=== PATIENT | female | born 1985 | race Caucasian/White ===

== ENCOUNTER 2018-04-05 23:29 | Emergency (ER) | payer MEDICAID ==
[2018-04-06] MEDS ORDERED: ACETAMINOPHEN 325 MG TABLET PO ONE (00:26)
--- NOTE | 2018-04-06 00:27 | ER Document Report ---
HPI - HPI Patient complains to provider of: Fall Onset: Other - 6 days ago Onset/Duration: Persistent Quality of pain: Sharp Pain Level: 5 Context: Recent states that she was walking on the sidewalk at [facility] 6 days ago and stepped on uneven pavement causing her to fall. Patient states she fell back and then to her side. Patient complains of neck, upper and lower back pain with bilateral knee pain. Patient states she was not certain of exactly what happened and states there may have been a brief loss of consciousness. Patient without any nausea or vomiting. Patient states she was unable to come be evaluated sooner because she is a single mom. Associated Symptoms: Other - Neck, back, bilateral knee pain. denies: Headache Exacerbated by: Movement Relieved by: Denies Similar symptoms previously: No Recently seen / treated by doctor: No - ROS ROS below otherwise negative: Yes Systems Reviewed and Negative: Yes All other systems reviewed and negative - CONSTITUTIONAL Constitutional: DENIES: Fever - NEURO Neurology: DENIES: Headache - GASTROINTESTINAL Gastrointestinal: DENIES: Nausea, Patient vomiting - REPRODUCTIVE LMP: 03-20-18 Reproductive: DENIES: : - MUSCULOSKELETAL Musculoskeletal: REPORTS: Extremity pain - Lateral knee, Back Pain, Neck Pain - DERM Skin Color: Normal Skin Problems: None Past Medical History - General Information source: Patient - Social History Smoking Status: Current Every Day Smoker Smoking Education Provided: Yes Frequency of alcohol use: None Drug Abuse: None Occupation: [employer] Lives with: Family Family History: Reviewed & Not Pertinent - Medical History Medical History: Other - Celiac Musculoskeltal Medical History: Reports Hx Arthritis - Chronic back pain Psychiatric Medical History: Reports: Hx Anxiety Surgical Hx: Negative Vertical Provider Document - CONSTITUTIONAL Agree With Documented VS: Yes Exam Limitations: No Limitations General Appearance: WD/WN, No Apparent Distress - INFECTION CONTROL TRAVEL OUTSIDE OF THE [place] IN LAST 30 DAYS: No - HEENT HEENT: Atraumatic, Normal ENT Exam, Normocephalic - NECK Neck: Supple. negative: Lymphadenopathy-Left, Lymphadenopathy-Right Notes: Posterior cervical tenderness C3 through 7 area, no step-off or deformity - RESPIRATORY Respiratory: Breath Sounds Normal, No Respiratory Distress - CARDIOVASCULAR Cardiovascular: Regular Rate, Regular Rhythm Pulses: Normal: Posterior tibial - BACK Back: Abnormal Inspection - Upper thoracic midline tenderness T4 through 7 area , lower lumbar tenderness, no step-off or deformity. negative: CVA Tenderness- Right, CVA Tenderness-Left - MUSCULOSKELETAL/EXTREMETIES Musculoskeletal/Extremeties: MAEW, FROM, Tender - Bilateral knee joint tenderness, no effusion, no laxity with varus or valgus maneuvers. Normal skin color and temperature overlying joints - NEURO Level of Consciousness: Awake, Alert, Appropriate Motor/Sensory: No Motor Deficit, No Sensory Deficit Notes: No saddle anesthesia, no footdrop, normal gait - DERM Integumentary: Warm, Dry, No Rash Course - Re-evaluation Re-evalutation: 04/06/18 01:58 Report and handout given to Campbell CORTES. Patient updated regarding plan of care - Vital Signs Vital signs: Temp Pulse Resp BP Pulse Ox 98.7 F 87 20 135/71 H 99 04/05/18 23:38 04/05/18 23:38 04/05/18 23:38 04/05/18 23:38 04/05/18 23:38 Discharge - Discharge Clinical Impression: Fall Qualifiers: Encounter type: initial encounter Qualified Code(s): W19.XXXA - Unspecified fall, initial encounter Back strain Qualifiers: Encounter type: initial encounter Qualified Code(s): S39.012A - Strain of muscle, fascia and tendon of lower back, initial encounter Bilateral knee pain Qualifiers: Chronicity: unspecified Qualified Code(s): M25.561 - Pain in right knee; M25.562 - Pain in left knee; M25.562 - Pain in left knee Instructions: Low Back Pain ([facility]), Upper Back Strain ([facility]), Muscle Relaxers ( [facility]), Sprained Knee ([facility]), Ice & Elevation ([facility]) Additional Instructions: Return immediately for any new or worsening symptoms Followup with your primary care provider, call tomorrow to make a followup appointment Follow-up with orthopedics for any continued pain or problems Take your diclofenac as prescribed Prescriptions: Methocarbamol [Robaxin 500 Mg Tablet] 500 mg PO QID PRN #20 tablet PRN Reason: Forms: Return to Work, Smoking Cessation Education Referrals: LIGIA MONTAÑO MD [ACTIVE STAFF] - Follow up as needed [facility] [Provider Group] - Follow up as needed
[2018-04-06 00:45] LABS: APPEARANCE,URINE SLIGHTLY-CLOUDY; BILIRUBIN,URINE NEGATIVE (NEGATIVE); COLOR,URINE YELLOW; GLUCOSE, URINE NEGATIVE (NEGATIVE); KETONES,URINE NEGATIVE (NEGATIVE); LEUKOCYTE ESTERASE,URINE SMALL (NEGATIVE); NITRITE,URINE NEGATIVE (NEGATIVE); PROTEIN,URINE NEGATIVE (NEGATIVE)
[2018-04-06] MEDS ORDERED: HYDROCODONE/ACETAMINOPHEN 5-325 MG (6 TAB/ER DISP) PO PRN (02:54)
[2018-04-06 03:07] VITALS: BP 131/75
--- NOTE | 2018-04-06 06:03 | RADIOLOGY REPORT (SQ) ---
EXAM DESCRIPTION: CT CERVICAL SPINE WITHOUT CLINICAL HISTORY: 32 years Female, Fell at [employer] and has pain in neck and stiffness. COMPARISON: None. TECHNIQUE: No contrast. Coronal and sagittal reformat. This exam was performed according to our departmental dose-optimization program, which includes automated exposure control, adjustment of the mA and/or kV according to patient size and/or use of iterative reconstruction technique. FINDINGS: Normal alignment, moderate straightening. No fracture. Mild spondylosis. Vertebral and intervertebral heights are maintained. Unenhanced nuchal soft tissues, inferior cranium, and upper thorax appear otherwise grossly intact. Impression: No acute findings.
--- NOTE | 2018-04-06 06:08 | RADIOLOGY REPORT (SQ) ---
EXAM DESCRIPTION: XR KNEE 4 VIEWS BILATERAL CLINICAL HISTORY: 32 years Female, Fell at [employer] and has pain in neck and stiffness. COMPARISON: None. Findings: Small-moderate bilateral knee effusions. Bones, joints, and soft tissues of the KNEE BILATERAL 4VIEWS appear otherwise intact. IMPRESSION: Bilateral knee effusion.
--- NOTE | 2018-04-06 06:09 | RADIOLOGY REPORT (SQ) ---
EXAM DESCRIPTION: XR LUMBAR SPINE 6 OR MORE VIEWS INCLUDING BENDING CLINICAL HISTORY: 32 years Female, Fell at [employer] and has pain in neck and stiffness. COMPARISON: None. Findings: Mild-moderate T11 anterior vertebral compression deformity. L5 transitional vertebral body. Mild lumbar spondylosis. Normal lumbar alignment and curvature. IMPRESSION: Mild/moderate T11 anterior vertebral compression deformity, indeterminate age. Intact lumbar spine.
--- NOTE | 2018-04-06 06:12 | RADIOLOGY REPORT (SQ) ---
EXAM DESCRIPTION: XR THORACIC SPINE 2 VIEWS CLINICAL HISTORY: 32 years Female, [facility] and has pain in neck and stiffness. COMPARISON: CR, L-spine, same day. Findings: Mild T11 anterior vertebral compression deformity demonstrated on direct lateral view at the thoracolumbar junction on contemporaneous CR, L-spine series. Mild T12-L1 disc desiccation. Else, normal alignment and curvature. IMPRESSION: Mild T11 anterior vertebral compression deformity.
== END 2018-04-06 03:06 | disposition home or self-care (01) ==
LOC: ER 23:29
DX: S39.012A Strain of muscle, fascia and tendon of lower back, initial encounter (principal); M25.561 Pain in right knee; M25.562 Pain in left knee; W01.0XXA Fall on same level from slipping, tripping and stumbling without subsequent striking against object, initial encounter; Y92.512 Supermarket, store or market as the place of occurrence of the external cause; F17.200 Nicotine dependence, unspecified, uncomplicated
CPT/HCPCS: 99284; 81025; 81001; 72110; 72070; 73560; 72125; J3490

== ENCOUNTER 2018-12-24 17:54 | Emergency (ER) | payer MEDICAID ==
[2018-12-24 18:35] VITALS: BP 152/92
[2018-12-24] MEDS ORDERED: LEVALBUTEROL HCL NEB 1.25 MG/3 ML AMPUL NEB ONE (19:15)
[2018-12-24] MEDS ORDERED: DEXAMETHASONE 4 MG TABLET PO ONE (19:16)
--- NOTE | 2018-12-24 19:18 | ER Document Report ---
ED Medical Screen (RME) - General Chief Complaint: Breathing Difficulty Stated Complaint: DIFFICULTY BREATHING Time Seen by Provider: 12/24/18 19:15 Primary Care Provider: JULY CASTREJON MD [Primary Care Provider] - Follow up as needed Notes: 33-year-old female presented to ED for complaint of shortness of breath difficulty breathing states she cannot get her breath. She states she was recently diagnosed with bronchitis and I did not give her any inhalers or steroids but did put her on antibiotics. She states that she is gotten progressively worse since then. 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 She does have a history of asthma bronchitis celiac disease arthritis and high blood pressure. She states she does smoke half pack a day and drinks about monthly. She does not work and lives with her parents. Patient is alert and oriented respirations are short of breath. She does have a moderate wheeze. She is afebrile blood pressure is 172/114 pulse is between 96 and 100 O2 sat is 98% and temp is 98.9. I have greeted and performed a rapid initial assessment of this patient. A comprehensive ED assessment and evaluation of the patient, analysis of test results and completion of medical decision making process will be conducted by an additional ED providers. TRAVEL OUTSIDE OF THE [place] IN LAST 30 DAYS: No - Related Data Allergies/Adverse Reactions: amoxicillin [From Augmentin] Allergy (Verified 04/05/18 23:36) clavulanic acid [From Augmentin] Allergy (Verified 04/05/18 23:36) gluten Allergy (Verified 04/05/18 23:36) Past Medical History - Social History Chew tobacco use (# tins/day): No Frequency of alcohol use: Rare Drug Abuse: None Pulmonary Medical History: Reports: Hx Asthma, Hx Bronchitis, Hx Pneumonia Renal/ Medical History: Denies: Hx Peritoneal Dialysis Musculoskeltal Medical History: Reports Hx Arthritis - Chronic back pain Psychiatric Medical History: Reports: Hx Anxiety Past Surgical History: Reports: Hx Nose Surgery, Hx Oral Surgery, Hx Orthopedic Surgery Physical Exam - Vital signs Vitals: Temp Pulse Resp BP Pulse Ox 97.6 F 120 H 18 152/92 H 98 12/24/18 18:33 12/24/18 18:33 12/24/18 18:33 12/24/18 18:33 12/24/18 18:33 Course - Vital Signs Vital signs: Temp Pulse Resp BP Pulse Ox 98.9 F 96 18 152/92 H 97 12/24/18 19:12 12/24/18 19:08 12/24/18 18:33 12/24/18 18:33 12/24/18 19:12 Doctor's Discharge - Discharge Referrals: JULY CASTREJON MD [Primary Care Provider] - Follow up as needed
--- NOTE | 2018-12-24 20:37 | RADIOLOGY REPORT (SQ) ---
EXAM DESCRIPTION: XR CHEST 2 VIEWS COMPLETED DATE/TME: 12/24/2018 19:15 CLINICAL HISTORY: 33 years, Female, Cough congestion short of breath COMPARISON: None. NUMBER OF VIEWS: 2 TECHNIQUE: Two-view, PA and lateral projections of the chest were obtained. LIMITATIONS: None. FINDINGS: Unremarkable cardiac and mediastinal silhouette. Heart size is normal. Lungs are clear without focal opacity, pneumothorax or pleural effusions. The visualized bones are within normal limits. IMPRESSION: No acute cardiopulmonary abnormalities. copyright 2010 [employer]- All Rights Reserved
[2018-12-24 20:47] LABS: APPEARANCE,URINE CLEAR; BILIRUBIN,URINE NEGATIVE (NEGATIVE); COLOR,URINE YELLOW; GLUCOSE, URINE NEGATIVE (NEGATIVE); KETONES,URINE NEGATIVE (NEGATIVE); LEUKOCYTE ESTERASE,URINE TRACE (NEGATIVE); NITRITE,URINE NEGATIVE (NEGATIVE); PROTEIN,URINE NEGATIVE (NEGATIVE); URINE SPECIFIC GRAVITY 1.011; UROBILINOGEN,URINE NEGATIVE mg/dL (<2.0)
== END 2018-12-24 23:36 | disposition left against medical advice (07) ==
LOC: ER 17:54
DX: R06.00 Dyspnea, unspecified (principal); R06.02 Shortness of breath; Z88.0 Allergy status to penicillin
CPT/HCPCS: 94640; 99281; 81001; 71046; J3490 ×2

== ENCOUNTER 2018-12-25 11:44 | Emergency (ER) | payer MEDICAID ==
[2018-12-25] MEDS ORDERED: ALBUTEROL SULFATE 0.083% NEB 2.5 MG/3 ML AMPUL NEB ONE (12:16)
[2018-12-25] MEDS ORDERED: PREDNISONE 20 MG TABLET PO ONE (12:16)
[2018-12-25] MEDS ORDERED: IPRATROPIUM/ALBUTEROL 0.5-2.5 MG/3 ML AMPUL NEB ONE (12:16)
--- NOTE | 2018-12-25 12:19 | ER Document Report ---
ED Respiratory Problem - General Chief Complaint: Breathing Difficulty Stated Complaint: DIFFICULTY BREATHING Time Seen by Provider: 12/25/18 11:53 Primary Care Provider: JULY CASTREJON MD [Primary Care Provider] - Follow up as needed Mode of Arrival: Ambulatory Information source: Patient TRAVEL OUTSIDE OF THE [place] IN LAST 30 DAYS: No - HPI Patient complains to provider of: Cough, Short of breath Onset: Last week Duration: Worse/persistent Quality of pain: No pain Context: Smoker Short of Breath: Mild Chest pain/discomfort: Tightness Cough: Nonproductive Associated symptoms: Congestion, Cough, Short of breath, Wheezing Similar symptoms previously: Yes Recently seen / treated by doctor: Yes Notes: Patient is a 33-year-old female who smokes, presenting to the emergency room today complaining of cough with shortness of breath and wheezing over the past 4-5 days, states she was seen in this emergency department yesterday and had a chest x-ray performed, apparently staff was unable to get any blood work or an IV and she therefore a little department prior to completion of evaluation but states she feels worse today, she uses an albuterol inhaler at home but that is not helping her symptoms very much, cough is nonproductive - Related Data Allergies/Adverse Reactions: amoxicillin [From Augmentin] Allergy (Verified 12/25/18 11:45) clavulanic acid [From Augmentin] Allergy (Verified 12/25/18 11:45) gluten Allergy (Verified 12/25/18 11:45) Past Medical History - General Information source: Patient - Social History Smoking Status: Current Every Day Smoker Family History: Reviewed & Not Pertinent Pulmonary Medical History: Reports: Hx Asthma, Hx Bronchitis, Hx Pneumonia Renal/ Medical History: Denies: Hx Peritoneal Dialysis Musculoskeletal Medical History: Reports Hx Arthritis - Chronic back pain Psychiatric Medical History: Reports: Hx Anxiety Past Surgical History: Reports: Hx Nose Surgery, Hx Oral Surgery, Hx Orthopedic Surgery Review of Systems - Review of Systems Constitutional: No symptoms reported EENT: No symptoms reported Cardiovascular: No symptoms reported Respiratory: See HPI Gastrointestinal: No symptoms reported Genitourinary: No symptoms reported Female Genitourinary: No symptoms reported Musculoskeletal: No symptoms reported Skin: No symptoms reported Hematologic/Lymphatic: No symptoms reported Neurological/Psychological: No symptoms reported -: Yes All other systems reviewed and negative Physical Exam - Vital signs Vitals: Temp Pulse Resp BP Pulse Ox 98.1 F 110 H 22 H 156/106 H 100 12/25/18 11:49 12/25/18 11:49 12/25/18 11:49 12/25/18 11:49 12/25/18 11:49 Interpretation: Hypertensive, Tachycardic, Tachypneic - General General appearance: Alert In distress: None - HEENT Head: Normocephalic, Atraumatic Eyes: Normal Pupils: PERRL - Respiratory Respiratory status: Tachypnea Chest status: Nontender Breath sounds: Nonproductive cough, Wheezing Chest palpation: Normal - Cardiovascular Rhythm: Regular Heart sounds: Normal auscultation Murmur: No - Abdominal Inspection: Obese Distension: No distension Bowel sounds: Normal Tenderness: Nontender Organomegaly: No organomegaly - Back Back: Normal, Nontender - Extremities General upper extremity: Normal inspection, Nontender, Normal color, Normal ROM, Normal temperature General lower extremity: Normal inspection, Nontender, Normal color, Normal ROM, Normal temperature, Normal weight bearing. No: Natasha's sign - Neurological Neuro grossly intact: Yes Cognition: Normal Orientation: AAOx4 [place] Coma Scale Eye Opening: Spontaneous [place] Coma Scale Verbal: Oriented [place] Coma Scale Motor: Obeys Commands Swapnil Coma Scale Total: 15 Speech: Normal Motor strength normal: LUE, RUE, LLE, RLE Sensory: Normal - Psychological Associated symptoms: Normal affect, Normal mood - Skin Skin Temperature: Warm Skin Moisture: Dry Skin Color: Normal Course - Re-evaluation Re-evalutation: 12/25/18 13:31 Patient reports improvement of symptoms, chest x-ray that was performed yesterday evening was reviewed with patient which is unremarkable, symptoms consistent with asthma/COPD exacerbation and/or acute viral bronchitis, patient was advised to discontinue smoking, take Tylenol as needed for fever or body aches, drink plenty of fluids and follow-up with primary care or return if symptoms worsen, she will be placed on prednisone for the next 5 days and be given a prescription for a Ventolin inhaler, patient advised to return immedia tely if symptoms worsen, patient acknowledges understanding and agreement with this plan - Vital Signs Vital signs: Temp Pulse Resp BP Pulse Ox 98.1 F 110 H 22 H 156/106 H 100 12/25/18 11:49 12/25/18 11:49 12/25/18 11:49 12/25/18 11:49 12/25/18 11:49 - EKG Interpretation by Me EKG shows normal: Sinus rhythm Rate: Tachycardia Discharge - Discharge Clinical Impression: Viral bronchitis, Bronchospasm Condition: Stable Disposition: HOME, SELF-CARE Instructions: Upper Respiratory Illness ([facility]), Viral Syndrome ([facility]), Asthma ([facility]) Additional Instructions: Follow up with your primary care provider in one to 2 days. Return to the emergency room immediately if symptoms worsen or any additional concerns. Prescriptions: Albuterol Sulfate [Ventolin Hfa 8 gm Mdi (1 Mdi/ER Disp)] 2 puff IH Q4H PRN #1 inhaler PRN Reason: Prednisone [Deltasone] 40 mg PO DAILY #10 tablet Forms: Smoking Cessation Education Referrals: JULY CASTREJON MD [Primary Care Provider] - Follow up as needed
[2018-12-25 13:46] VITALS: BP 136/85
--- NOTE | 2018-12-25 15:51 | EKG REPORT ---
SEVERITY:- BORDERLINE ECG - SINUS TACHYCARDIA INFERIOR Q WAVES, PROBABLY NORMAL VARIATION : Confirmed by: Kevin Corbett MD 25-Dec-2018 15:51:24
== END 2018-12-25 13:46 | disposition home or self-care (01) ==
LOC: ER 11:44
DX: J20.8 Acute bronchitis due to other specified organisms (principal); B97.89 Other viral agents as the cause of diseases classified elsewhere; R06.02 Shortness of breath; R09.81 Nasal congestion; R05 Cough; F17.200 Nicotine dependence, unspecified, uncomplicated; I10 Essential (primary) hypertension; R00.0 Tachycardia, unspecified; J44.1 Chronic obstructive pulmonary disease with (acute) exacerbation
CPT/HCPCS: 93005; 94640 ×2; 99284; 93010; J7512; J7620

== ENCOUNTER 2019-04-28 15:36 | Emergency (ER) | payer MEDICAID ==
[2019-04-28] MEDS ORDERED: IPRATROPIUM/ALBUTEROL 0.5-2.5 MG/3 ML AMPUL NEB ONE (16:13)
[2019-04-28] MEDS ORDERED: NORMAL SALINE 1000 ML 1,000 ML IV ONE (16:13)
[2019-04-28] MEDS ORDERED: ONDANSETRON HCL INJ/PF 4 MG/2 ML SDV IV ONE ×2 (16:13→21:27)
--- NOTE | 2019-04-28 16:17 | ER Document Report ---
ED Medical Screen (RME) - General Chief Complaint: Shortness Of Breath Stated Complaint: VOMITING Time Seen by Provider: 04/28/19 16:06 Primary Care Provider: LAKESHA MATHUR MD [Primary Care Provider] - Follow up as needed Mode of Arrival: Ambulatory Information source: Patient Notes: Patient presents with numerous complaints. Patient reports cough and shortness of breath for several months. Patient reports right thoracic back pain for the past 10 days. Patient reports generalized abdominal pain with bloating for the past month. Patient complains of nausea vomiting diarrhea for the past 2 weeks. Patient states she is vomited 4 times today and had diarrhea 6 times today. Patient denies any fever. Patient does report some blood with wiping but is uncertain if this is in the stool. Patient does typically smoke but states she has not been able to due to her symptoms. hx: Anxiety depression, celiac, IBS, psoriatic arthritis I have greeted and performed a rapid initial assessment of this patient. A comprehensive ED assessment and evaluation of the patient, analysis of test results and completion of the medical decision making process will be conducted by additional ED providers. TRAVEL OUTSIDE OF THE [place] IN LAST 30 DAYS: No - Related Data Allergies/Adverse Reactions: amoxicillin [From Augmentin] Allergy (Verified 12/25/18 11:45) clavulanic acid [From Augmentin] Allergy (Verified 12/25/18 11:45) gluten Allergy (Verified 12/25/18 11:45) Past Medical History - Social History Chew tobacco use (# tins/day): No Frequency of alcohol use: None Drug Abuse: None Pulmonary Medical History: Reports: Hx Asthma, Hx Bronchitis, Hx Pneumonia Renal/ Medical History: Denies: Hx Peritoneal Dialysis Musculoskeltal Medical History: Reports Hx Arthritis - Chronic back pain Psychiatric Medical History: Reports: Hx Anxiety Past Surgical History: Reports: Hx Nose Surgery, Hx Oral Surgery, Hx Orthopedic Surgery Physical Exam - Vital signs Vitals: Temp Pulse Resp BP Pulse Ox 98.7 F 126 H 24 H 131/117 H 97 04/28/19 15:42 04/28/19 15:42 04/28/19 15:42 04/28/19 15:42 04/28/19 15:42 - Respiratory Respiratory status: No respiratory distress Chest status: Pain with cough, Pain with deep breathing Breath sounds: Nonproductive cough, Rhonchi Course - Vital Signs Vital signs: Temp Pulse Resp BP Pulse Ox 98.7 F 126 H 24 H 131/117 H 97 04/28/19 15:42 04/28/19 15:42 04/28/19 15:42 04/28/19 15:42 04/28/19 15:42 Doctor's Discharge - Discharge Referrals: LAKESHA MATHUR MD [Primary Care Provider] - Follow up as needed
--- NOTE | 2019-04-28 16:55 | RADIOLOGY REPORT (SQ) ---
EXAM DESCRIPTION: CHEST 2 VIEWS COMPLETED DATE/TIME: 04/28/2019 4:35 pm REASON FOR STUDY: cough COMPARISON: 12/24/2018 EXAM PARAMETERS: NUMBER OF VIEWS: two views TECHNIQUE: Digital Frontal and Lateral radiographic views of the chest acquired. RADIATION DOSE: NA LIMITATIONS: none FINDINGS: LUNGS AND PLEURA: No opacities, masses or pneumothorax. No pleural effusion. MEDIASTINUM AND HILAR STRUCTURES: No masses or contour abnormalities. HEART AND VASCULAR STRUCTURES: Heart normal size. No evidence for failure. BONES: No acute findings. HARDWARE: None in the chest. OTHER: No other significant finding. IMPRESSION: NO ACUTE RADIOGRAPHIC FINDING IN THE CHEST. TECHNICAL DOCUMENTATION: JOB ID: [id number] [employer]- All Rights Reserved Reading location - IP/workstation name: [email or web address]
[2019-04-28] MEDS ORDERED: ONDANSETRON HCL INJ/PF 4 MG/2 ML SDV ONE (18:37)
[2019-04-28 18:41] VITALS: BP 130/76
[2019-04-28] MEDS ORDERED: ACETAMINOPHEN 325 MG TABLET PO ONE (18:41)
[2019-04-28 19:07] LABS: ABSOLUTE BASOPHILS # (AUTO) 0.1 10^3/uL (0.0-0.2); ABSOLUTE EOSINOPHILS # (AUTO) 0.1 10^3/uL (0.0-0.6); ABSOLUTE LYMPHOCYTES (AUTO) 2.2 10^3/uL (0.5-4.7); ABSOLUTE MONOCYTES (AUTO) 0.3 10^3/uL (0.1-1.4); ABSOLUTE NEUT (AUTO) 4.1 10^3/uL (1.7-8.2); BASOPHILS % (AUTO) 1.1 % (0-2); EOSINOPHILS % (AUTO) 1.1 % (0-6); HEMATOCRIT 39.9 % (36.0-47.0); HEMOGLOBIN 12.9 g/dL (12.0-15.5); LYMPHOCYTES % (AUTO) 33.1 % (13-45); MEAN CORPUSCULAR HEMOGLOBIN 27.4 pg (27.0-33.4); MEAN CORPUSCULAR HGB CONC 32.4 g/dL (32.0-36.0); MEAN CORPUSCULAR VOLUME 85 fl (80-97); MONOCYTES % (AUTO) 4.6 % (3-13); PLATELET COUNT 119 10^3/uL (150-450); RED BLOOD COUNT 4.72 10^6/uL (3.72-5.28); RED CELL DISTRIBUTION WIDTH 16.3 % (11.5-14.0); SEGMENTED NEUTROPHILS % (AUTO) 60.1 % (42-78); TOTAL CELLS COUNTED % (AUTO) 100 %; WHITE BLOOD COUNT 6.8 10^3/uL (4.0-10.5)
[2019-04-28 19:13] LABS: APPEARANCE,URINE SLIGHTLY-CLOUDY; BILIRUBIN,URINE NEGATIVE (NEGATIVE); COLOR,URINE YELLOW; GLUCOSE, URINE NEGATIVE (NEGATIVE); KETONES,URINE NEGATIVE (NEGATIVE); LEUKOCYTE ESTERASE,URINE NEGATIVE (NEGATIVE); NITRITE,URINE POSITIVE (NEGATIVE); PROTEIN,URINE NEGATIVE (NEGATIVE); URINE SPECIFIC GRAVITY 1.009
[2019-04-28 19:26] LABS: ALANINE AMINOTRANSFERASE 98 U/L (9-52); ALBUMIN 4.1 g/dL (3.5-5.0); ALKALINE PHOSPHATASE 266 U/L (38-126); ANION GAP 14 (5-19); ASPARTATE AMINO TRANSFERASE 161 U/L (14-36); BILIRUBIN,DIRECT 0.5 mg/dL (0.0-0.4); BILIRUBIN,TOTAL 0.7 mg/dL (0.2-1.3); BLOOD UREA NITROGEN 6 mg/dL (7-20); CALCIUM 9.2 mg/dL (8.4-10.2); CARBON DIOXIDE 25 mmol/L (22-30); CHLORIDE 102 mmol/L (98-107); GLUCOSE 159 mg/dL (75-110); LIPASE 104.9 U/L (23-300); POTASSIUM 4.3 mmol/L (3.6-5.0); SODIUM 140.9 mmol/L (137-145); TOTAL PROTEIN 7.5 g/dL (6.3-8.2)
[2019-04-28] MEDS ORDERED: KETOROLAC TROMETHAMINE INJ/PF 30 MG/1 ML SDV IV ONE (21:28)
--- NOTE | 2019-04-28 21:33 | ER Document Report ---
ED General - General Chief Complaint: Shortness Of Breath Stated Complaint: VOMITING Time Seen by Provider: 04/28/19 16:06 Primary Care Provider: LAKESHA MATHUR MD [ACTIVE STAFF] - Follow up as needed Mode of Arrival: Ambulatory Notes: Patient is a 33-year-old female with past medical history of asthma, morbid obesity, presents with complaints of at least 4 months of persistent daily cough and 1 week of right lower rib discomfort as well as shortness of breath. The patient also complains of bilateral lower extremity edema that is been on and off for the past several months. Patient states that she came to the emergency department primarily because she felt the pain in her right side as well as her shortness of breath has been worsening. She regards the pain to the right side as being a stabbing, throbbing, constant discomfort worsened by movement or touching the area. Has not tried nothing for improvement of the pain. No history of similar symptoms in the past. Does regard the pain is being severe. She denies pleuritic pain. States that the shortness of breath is constant, somewhat worsened by exertion. Denies history of DVT or pulmonary embolus. No history of prolonged immobilization, use of estrogen or cancer. Has not seen her primary care physician regarding today's concerns. TRAVEL OUTSIDE OF THE [place] IN LAST 30 DAYS: No - Related Data Allergies/Adverse Reactions: amoxicillin [From Augmentin] Allergy (Verified 12/25/18 11:45) clavulanic acid [From Augmentin] Allergy (Verified 12/25/18 11:45) gluten Allergy (Verified 12/25/18 11:45) Past Medical History - General Information source: Patient - Social History Smoking Status: Former Smoker Chew tobacco use (# tins/day): No Frequency of alcohol use: None Drug Abuse: None Lives with: Family Family History: Reviewed & Not Pertinent Patient has suicidal ideation: No Patient has homicidal ideation: No Pulmonary Medical History: Reports: Hx Asthma, Hx Bronchitis, Hx Pneumonia Renal/ Medical History: Denies: Hx Peritoneal Dialysis Musculoskeletal Medical History: Reports Hx Arthritis - Chronic back pain Psychiatric Medical History: Reports: Hx Anxiety Past Surgical History: Reports: Hx Nose Surgery, Hx Oral Surgery, Hx Orthopedic Surgery Review of Systems - Review of Systems Notes: Constitutional: Negative for fever. HENT: Negative for sore throat. Eyes: Negative for visual changes. Cardiovascular: Negative for chest pain. Respiratory: Positive for shortness of breath. Gastrointestinal: Negative for abdominal pain, vomiting or diarrhea. Genitourinary: Negative for dysuria. Musculoskeletal: Positive for right lower rib/side pain Skin: Negative for rash. Neurological: Negative for headaches, weakness or numbness. 10 point ROS negative except as marked above and in HPI. Physical Exam - Vital signs Vitals: Temp Pulse Resp BP Pulse Ox 98.7 F 126 H 24 H 131/117 H 97 04/28/19 15:42 04/28/19 15:42 04/28/19 15:42 04/28/19 15:42 04/28/19 15:42 Interpretation: Tachycardic, Tachypneic Notes: PHYSICAL EXAMINATION: GENERAL: Well-appearing, well-nourished and in no acute distress. HEAD: Atraumatic, normocephalic. EYES: Pupils equal round and reactive to light, extraocular movements intact, sclera anicteric, conjunctiva are normal. ENT: nares patent, oropharynx clear without exudates. Moist mucous membranes. NECK: Normal range of motion, supple without lymphadenopathy LUNGS: Breath sounds clear to auscultation bilaterally and equal. No wheezes rales or rhonchi. HEART: Regular tachycardia without murmurs ABDOMEN: Soft, morbidly obese abdomen, nontender, normoactive bowel sounds. No guarding, no rebound. No masses appreciated. EXTREMITIES: Normal range of motion, trace edema in the bilateral lower 70s that is equal and symmetric no cyanosis. NEUROLOGICAL: No focal neurological deficits. Moves all extremities spontaneously and on command. PSYCH: Moderately anxious SKIN: Warm, Dry, normal turgor, no rashes or lesions noted. Course - Re-evaluation Re-evalutation: 04/29/19 00:50 Patient presents with complaints of pain to her right lower ribs of breath, increasing bilateral lower extremity edema. The patient also reports that she has had a cough for approximately 4 to 5 months without relief. On exam the patient was initially moderately tachycardic which did improve with IV fluids. The patient did have some persistency of cough here in the emergency department which was controlled after receiving albuterol inhalers. In triage, a d-dimer was sent and noted to be positive. Patient underwent VQ scan due to inability to obtain CTA due to lack of appropriate IV access. VQ scan low probability for pulmonary embolus. Suspect the patient's lower rib/flank pain is secondary to persistency of cough and musculoskeletal irritation particular given that it is entirely reproducible on exam. She has been started on topical diclofenac for pain control. Have also started her on steroids, albuterol inhaler, Qvar for her persistency of cough likely secondary to reactive airway disease with allergic component. At this time will discharge with return precautions and follow-up recommendations. Verbal discharge instructions given a the bedside and opportunity for questions given. Medication warnings reviewed. Patient is in agreement with this plan and has verbalized understanding of return precautions and the need for primary care follow-up in the next 24-72 hours. - Vital Signs Vital signs: Temp Pulse Resp BP Pulse Ox 98.4 F 105 H 16 130/76 H 99 04/28/19 18:31 04/28/19 18:31 04/29/19 01:00 04/28/19 18:31 04/29/19 01:00 - Laboratory Result Diagrams: 04/28/19 18:30 04/28/19 18:30 Laboratory results interpreted by me: 04/28/19 04/28/19 04/28/19 18:30 18:30 18:30 RDW 16.3 H Plt Count 119 L D-Dimer 0.61 H BUN 6 L Creatinine 0.44 L Glucose 159 H Direct Bilirubin 0.5 H AST 161 H ALT 98 H Alkaline Phosphatase 266 H Urine Nitrite Urine Urobilinogen 04/28/19 18:30 RDW Plt Count D-Dimer BUN Creatinine Glucose Direct Bilirubin AST ALT Alkaline Phosphatase Urine Nitrite POSITIVE H Urine Urobilinogen 4.0 H - Diagnostic Test Radiology reviewed: Image reviewed, Reports reviewed Radiology results interpreted by me: 04/29/19 00:51 Chest x-ray: No acute infiltrate or pneumothorax - EKG Interpretation by Me Additional EKG results interpreted by me: 04/29/19 00:51 Sinus rhythm, rate 89. No ST elevations or depressions. QT prolonged at 512. Discharge - Discharge Clinical Impression: Rib pain on right side, Shortness of breath, Persistent cough, Bilateral lower extremity edema Condition: Stable Disposition: HOME, SELF-CARE Additional Instructions: Your VQ scan today does not suggest a blood clot in your lung. A chest x-ray is otherwise normal and does not show pneumonia. Your blood work is likewise at your baseline. You are being started on steroids, Qvar, and albuterol inhalers to try to control your persistent cough which is likely related to underlying reactive airway disease. You may also take [id number] Flonase as well as Ramya to help control your symptoms. You may wear compression stockings for the swelling in your lower extremities. For pain in your side, you are being started on topical Voltaren gel. Please use as prescribed. Return if you develop increasing shortness of breath, fever greater than 100.4 F, pass out, develop worsening shortness of breath, or have any other symptoms that are worrisome to you. Prescriptions: Beclomethasone Dipropionate [Qvar Redihaler] 10.6 gm IH DAILY #1 hfa.aeroba Diclofenac Sodium [Voltaren] 100 gm TP TID PRN #100 gel..gm. PRN Reason: Prednisone [Deltasone 20 mg Tablet] 2 tab PO DAILY 5 Days tablet Referrals: LAKESHA MATHUR MD [ACTIVE STAFF] - Follow up as needed
--- NOTE | 2019-04-29 00:19 | RADIOLOGY REPORT (SQ) ---
EXAM DESCRIPTION: NM LUNG VENTILATION PERFUSION COMPLETED DATE/TME: 04/28/2019 00:00 CLINICAL HISTORY: 33 years, Female, TACHY, SOB, ELEVEATED D-DIMER (UNABLE TO GET ADAQUATE IV FOR CTA) COMPARISON: None. RADIONUCLIDE AND DOSE: 5.34 mCi technetium 99m MAA and inhalation of 32.6 mCi technetium 99m DTPA aerosol ADDITIONAL DRUGS AND DOSES: None TECHNIQUE: Following the administration of radio nuclei, multiple projected images during ventilation and perfusion was obtained over the thorax RADIATION DOSE: Unknown LIMITATIONS: None. FINDINGS: No discrete perfusion defects. No VQ mismatch. There is significantly poor radiotracer activity throughout the lung suarez bilaterally on the ventilation portion of the exam consistent with air trapping. IMPRESSION: Low probability for PE. Air trapping, as above. copyright 2010 [employer]- All Rights Reserved
[2019-04-29] MEDS ORDERED: KETOROLAC TROMETHAMINE INJ/PF 30 MG/1 ML SDV IV ONE (00:47)
[2019-04-29] MEDS ORDERED: LIDOCAINE 5% (700 MG) TRANSDERMAL ADH..PATCH TP ONE (00:47)
[2019-04-29] MEDS ORDERED: PREDNISONE 20 MG TABLET PO ONE (00:47)
[2019-04-29] MEDS ORDERED: ALBUTEROL SULFATE HFA (90 MCG/PUFF) 200 PUFF/8.5 GM MDI IH ONE (00:47)
== END 2019-04-29 01:09 | disposition home or self-care (01) ==
LOC: ER 15:36
DX: R07.81 Pleurodynia (principal); J45.909 Unspecified asthma, uncomplicated; R60.0 Localized edema; R79.1 Abnormal coagulation profile; R06.02 Shortness of breath; R05 Cough; R00.0 Tachycardia, unspecified; Z87.891 Personal history of nicotine dependence; Z87.01 Personal history of pneumonia (recurrent); Z88.0 Allergy status to penicillin; Z91.018 Allergy to other foods
CPT/HCPCS: 96376; 94640; 99284; 96361; 96374; 96375; 36415; 83690; 84703; 85025; 80053; 81001; 85379; 71046; 78582; A9540; A9567; J3490 ×3; J1885 ×2; J7512; J2405; J7030; J7620; Q9969